=== PATIENT | male | born 1965 | race Two or more races ===

== ENCOUNTER → 2016-03-29 | Outpatient (CLI) | payer BC | LOC: SP 17:28 | PROVIDERS: ATTEND Physician Assistant | DX: M79.604 Pain in right leg (principal); M79.605 Pain in left leg | CPT/HCPCS: 93971 ==

== ENCOUNTER → 2016-12-20 | Outpatient (CLI) | payer BC ==
--- NOTE | 2016-12-21 19:42 | XCELERA REPORT ---
[address] [address] Transthoracic Echocardiogram Report Name: EMILY CONDON Age: 51 yrs Gender: Male : 1965 Patient Status: Outpatient Patient Location: Study Date: 12/20/2016 08:53 AM Height: 67 in Weight: 210 lb BSA: 2.1 m2 Procedure: A complete two-dimensional transthoracic echocardiogram was performed (2D, M-mode, spectral and color flow Doppler). The study was technically difficult with many images being suboptimal in quality. Reason For Study: COARCTATION OF AORTA Ordering Physician: MICHAEL ROMERO Performed By: Merary Darden Interpretation Summary The study was technically difficult with many images being suboptimal in quality. The left ventricular ejection fraction is normal. There is mild concentric left ventricular hypertrophy. The left ventricle is grossly normal size. Doppler measurements suggest pseudonormalized left ventricular relaxation, which is associated with grade II/IV or mild to moderate diastolic dysfunction Wall motion cannot be accurately commented on, but no definite regional wall motion abnormalities noted. The right ventricular systolic function is normal. The left atrium is moderately dilated. The right atrium is normal in size There is a mild to moderate amount of mitral regurgitation There is no mitral valve stenosis. There is a mild to moderate amount of aortic regurgitation There is no aortic valve stenosis There is a trace or physiologic amount of tricuspid regurgitation Tricuspid regurgitation jet envelope not well defined to measure RV systolic pressure accurately. The aortic root is not well visualized. The inferior vena cava appeared normal and decreased > 50% with respiration (RAP 5-10 mmHg) There is no pericardial effusion. Milld increased gradient noted of approx 16 meters/sec in descending thoracic aorta. Consider alternative methods to evaluate further such cardiac MRI, or cardiac CTA for co-arctation MMode/2D Measurements & Calculations RVDd: 3.1 cm LVIDd: 6.1 cmFS: 37.2 % Ao root diam: 4.3 cm IVSd: 1.3 cm LVIDs: 3.8 cmEDV(Teich): 187.3 ml LVPWd: 1.2 cmESV(Teich): 63.2 ml Ao root area: 14.3 cm2 EF(Teich): 66.2 % LA dimension: 4.9 cm LVOT diam: 2.7 cm LVOT area: 5.8 cm2 Doppler Measurements & Calculations MV E max gavino: MV P1/2t max gavino: Ao V2 max: AI max gavino: 111.1 cm/sec 111.1 cm/sec 191.1 cm/sec 298.6 cm/sec MV A max gavino: MV P1/2t: 49.3 msec Ao max PG: AI max P.2 cm/sec MVA(P1/2t): 4.5 cm2 14.6 mmHg 35.7 mmHg MV E/A: 0.80 MV dec slope: ELIZA(V,D): AI dec slope: 659.3 cm/sec2 3.5 cm2 145.9 cm/sec2 AI P1/2t: 599.6 msec LV V1 max PG: PA V2 max: 5.3 mmHg 84.4 cm/sec LV V1 max: PA max P.8 mmHg 115.0 cm/sec Left Ventricle The left ventricle is grossly normal size. There is mild concentric left ventricular hypertrophy. The left ventricular ejection fraction is normal. Doppler measurements suggest pseudonormalized left ventricular relaxation, which is associated with grade II/IV or mild to moderate diastolic dysfunction. Wall motion cannot be accurately commented on, but no definite regional wall motion abnormalities noted. Right Ventricle The right ventricle is grossly normal size. There is normal right ventricular wall thickness. The right ventricular systolic function is normal. Atria The right atrium is normal in size. The left atrium is moderately dilated. Interarterial septum not well visualized and not well dopplered. Cannot comment on ASD/PFO presence. Mitral Valve The mitral valve leaflets are sclerotic, but show no functional abnormalities. There is no mitral valve stenosis. There is a mild to moderate amount of mitral regurgitation. Aortic Valve The aortic valve is mildly calcified. A bicuspid aortic valve cannot be excluded. There is no aortic valve stenosis. There is a mild to moderate amount of aortic regurgitation. Tricuspid Valve The tricuspid valve is not well visualized secondary to technical limitations. There is no tricuspid stenosis. There is a trace or physiologic amount of tricuspid regurgitation. Tricuspid regurgitation jet envelope not well defined to measure RV systolic pressure accurately. Pulmonic Valve The pulmonic valve is not well visualized. Great Vessels The aortic root is not well visualized. The inferior vena cava appeared normal and decreased > 50% with respiration (RAP 5-10 mmHg). Effusions There is no pericardial effusion. Incidental Findings Milld increased gradient noted of approx 16 meters/sec in descending thoracic aorta. Consider alternative methods to evaluate LVEF such as MUGA scan, cardiac MRI, or cardiac CTA. : MICHAEL ROMERO > Shereen Boyd
== END ==
LOC: SP 08:42
PROVIDERS: ATTEND Internal Medicine
DX: I10 Essential (primary) hypertension (principal); Q25.1 Coarctation of aorta
CPT/HCPCS: 93306